=== PATIENT | female | born 1990 | race Caucasian/White ===

== ENCOUNTER 2016-09-25 05:37 | Inpatient (IN) | payer OTHER ==
[~2016-09-25] VITALS: Ht 149.9 cm; Wt 82.6 kg
[2016-09-25] MEDS ORDERED: Sodium Citrate-Citric Acid 15 mL Solution PO SCH (06:00)
[2016-09-25] MEDS ORDERED: Methylergonovine 0.2 mg/mL Inj IM PRN ×2 (06:00→09:30)
[2016-09-25] MEDS ORDERED: Oxytocin 10 Unit/mL Inj IM PRN ×2 (06:00→09:30)
[2016-09-25] MEDS ORDERED: Lactated Ringer's 1,000 ML IV SCH (06:00)
[2016-09-25] MEDS ORDERED: Carboprost 250 mCg/mL Inj IM PRN ×2 (06:00→09:30)
[2016-09-25] MEDS ORDERED: Hemorrhage Kit, Post Partum XX ONE ×2 (06:00→09:30)
[2016-09-25 06:35] LABS: Mean Corpuscular Hemoglobin 27.1 pg (27.0-35.0); Mean Corpuscular Volume 80.4 fL (81-100)
--- NOTE | 2016-09-25 07:09 | PCM.HPANE ---
Patient Data Surgeon Admitting Provider:Elizabeth Marmolejo MD Attending Provider:Elizabeth Marmolejo MD Primary Care Physician:Jose Alfredo Other Provider:Cira Almendarez Anesthesia Reason for Visit repeat repeat Ht/WT & BMI Body Mass Index Diabetes History Hx Diabetes?: No MRSA MRSA: No Medications Hypertension Medication: No Home Meds Incl Beta Rosario: No History Hx of Heart Problems?: No Other History/Comments h/o ASD repair as an , no cardiac limitations currently Hx of Respiratory Problem?: No Smoking Status: Never Smoker Stop/Bang Risk Assessment Category Category 1A: Patient has history of documented sleep apnea, and HAS NOT received any narcotic, sedative or anesthesia administration during this stay. Category 1B: Patient has history of documented sleep apnea, and HAS received any narcotic , sedative or anesthesia administration during this stay Category 2: Patient has SUSPECTED Obstructive Sleep Apnea, and HAS received any narcotic , sedative or anesthesia administration during this stay. Category 3: Patient has SUSPECTED Obstructive Sleep Apnea and HAS NOT received narcotic, sedative or anesthesia administration during this stay. Category 4: Outpatient in Procedural Areas with known sleep apnea or who screen positive for High Risk via the STOP/BANG questionnaire. Exam Exam General Appearance: Alert, Oriented X3, Cooperative, No Acute Distress HEENT/AIRWAY: MP 1, Other (nml airway exam) Lungs: Normal Air Movement Heart: Exam Unremarkable Meds/Labs/Diagnostics Admission Meds Current Medications Lactated Ringer's (Lr) 1,000 ml @ 125 mls/hr Q8H IV Last administered on t 06:23; Start 09/25/16 at 06:00; Stop 09/25/16 at 13:59; Status UNV Labs Test 09/25/16 05:50 09/25/16 06:10 Urine Opiates Screen Negative Urine Methadone Screen Negative Urine Barbiturates Screen Negative Urine Amphetamines Screen Positive Urine Benzodiazepines Screen Negative Urine Cocaine Metabolite Screen Negative Urine Cannabinoids Screen Positive White Blood Count 9.6th/mm3 (3.8-10.1) Red Blood Count 4.13mil/mm3 (3.90-5.20) Hemoglobin 11.2g/dL (12.0-15.6) Hematocrit 33.2% (35.0-46.0) Mean Corpuscular Volume 80.4fL (81-100) Mean Corpuscular Hemoglobin 27.1pg (27.0-35.0) Mean Corpuscular Hemoglobin Concent 33.7% (32.0-37.0) Red Cell Distribution Width 13.5% (12.3-15.4) Platelet Count 465bil/L (150-400) Plan Impression Patient chart reviewed, patient interviewed and anesthestic plan with risks, benefits, and alternatives discussed, and informed consent obtained. ASA Physical Status: ASA2 Mod Systemic Disease Anesthetic Plan: SAB Bene/Risks/Altern/Consents: Yes HP Complete Prior to Induction: Yes Jude Hernandez MD Sep 25, 2016 07:09
[2016-09-25] MEDS ORDERED: Dexamethasone 4 mg/mL Inj ONE ×2 (07:42→07:55)
[2016-09-25] MEDS ORDERED: Bupiv-Spinal 0.75%/Dex 8.25% 2 mL Inj ONE (07:42)
[2016-09-25] MEDS ORDERED: Ondansetron 2 mg/mL 2 mL Inj ONE ×2 (07:42→07:55)
[2016-09-25] MEDS ORDERED: Phenylephrine/NS-PF 100 mCg/mL 5 mL Syringe IVPUSH ONE ×2 (07:42→07:55)
[2016-09-25] MEDS ORDERED: fentaNYL-PF 50 mCg/mL 2 mL Inj ONE (07:55)
[2016-09-25] MEDS ORDERED: Morphine PF 1 mg/mL 10 mL Inj ONE (07:55)
[2016-09-25] MEDS ORDERED: Oxytocin 10 Unit/mL Inj ONE (07:55)
[2016-09-25] MEDS ORDERED: Lactated Ringer's 1,000 ML IV PRN (08:22)
[2016-09-25] MEDS ORDERED: EPHEDrine Sulfate 50 mg/mL Inj IVPUSH PRN (08:25)
[2016-09-25] MEDS ORDERED: Atropine 0.4 mg/mL Inj IV PRN (08:25)
[2016-09-25] MEDS ORDERED: Ondansetron 2 mg/mL 2 mL Inj IVPUSH PRN (08:25)
[2016-09-25] MEDS ORDERED: MetoCLOpramide 5 mg/mL 2 mL Inj IVPUSH PRN (08:25)
[2016-09-25] MEDS ORDERED: fentaNYL-PF 50 mCg/mL 2 mL Inj IVPUSH PRN (08:25)
[2016-09-25] MEDS ORDERED: Dexamethasone 4 mg/mL Inj IVPUSH PRN (08:25)
[2016-09-25] MEDS ORDERED: hydrOXYzine Pamoate 25 mg Capsule PO PRN (09:30)
[2016-09-25] MEDS ORDERED: LANOlin HPA 7 Gm Ointment TOPICAL PRN (09:30)
[2016-09-25] MEDS ORDERED: Oxytocin 30 Units/500 mL LR 30 UNITS in IV Premix 1 EACH IV PRN (09:30)
[2016-09-25] MEDS ORDERED: Measles-Mumps-Rubella Vaccine 0.5 mL Inj SUBQ ONE (09:30)
[2016-09-25] MEDS ORDERED: Sodium Chloride LOK Flush 10 mL Syringe IVFLUSH PRN (09:30)
[2016-09-25] MEDS ORDERED: diphenhydrAMINE 50 mg Capsule PO PRN (09:30)
--- NOTE | 2016-09-25 09:41 | PCM.ANEP1 ---
Post Anesthesia Phase 1 PACU Phase 1 Assessment Vital Signs see anesthesia record Anesthetic Administered: SAB Level of Alertness: Awake, talking BELL's with Equal Strength: No (SAB still in effect) Pain: No Nausea or Vomiting: No Oxygen Delivery: Room Air Lungs: Normal Air Movement Dermatome Level: T10 (Umbilicus) Jude Hernandez MD Sep 25, 2016 09:41
--- NOTE | 2016-09-25 09:41 | PCM.ANEP2 ---
Post Anesthesia Evaluation ASA/CMS Post Anesthesia VS in Patient's Normal Range?: Yes Resp Stable; Airway Patent?: Yes CV Function & Hydration Stable: Yes Mental Status Recovered?: Yes Pain control Satisfactory?: Yes N/V Control Satisfactory?: Yes Jude Hernandez MD Sep 25, 2016 09:41
--- NOTE | 2016-09-25 10:17 | OP ---
[address] [address] OPERATIVE REPORT PATIENT: CHRISTIANO LUIS : 1990 MR#: [id number] ADMIT: 09/25/2016 JOB ID: [id number] DATE OF SURGERY: 09/25/2016 PREOPERATIVE DIAGNOSIS(ES): 1. A 39 plus 2 week intrauterine , here for repeat section. 2. History of section x2 previously. 3. History of asthma, on albuterol and Pulmicort. 4. Maternal history of atrial-septal defect repair in childhood with normal echo this . 5. Positive marijuana and amphetamine screen at the time of admission. 6. Rh-negative status, status post RhoGAM given at 38 weeks in . 7. Poor social situation. Would transfer care from [facility] to [facility], as the is not allowed at [facility] facilities due to trespassing charges. 8. Depression, controlled on Celexa. 9. Rubella equivocal status. POSTOPERATIVE DIAGNOSIS(ES): 1. A 39 plus 2 week intrauterine , here for repeat section. 2. History of section x2 previously. 3. History of asthma, on albuterol and Pulmicort. 4. Maternal history of atrial-septal defect repair in childhood with normal echo this . 5. Positive marijuana and amphetamine screen at the time of admission. 6. Rh-negative status, status post RhoGAM given at 38 weeks in . 7. Poor social situation. Would transfer care from [facility] to [facility], as the is not allowed at [facility] facilities due to trespassing charges. 8. Depression, controlled on Celexa. 9. Rubella equivocal status. PROCEDURE: Repeat low-transverse section. SURGEON: Elizabeth Marmolejo MD. PRINTING ASSISTANT: Se Olvera MD, who was necessary for retraction and assistance with lysis of adhesions and dissection, given the patient's history of section x2. ANESTHESIA: Spinal with Duramorph. ESTIMATED BLOOD LOSS: 500 cc. FLUID REPLACEMENT: 1800 cc of crystalloid. URINE OUTPUT: 300 cc of clear yellow urine. FINDINGS: Liveborn male , born on September 25, 2017 at 0826 hours, weighing 6 pounds 8 ounces or 2946 g, with Apgars of 9 at one minute and 10 at five minutes. COMPLICATIONS: None apparent. INDICATIONS: This is a 25-year-old, G3, P 2-0-0-2 female, who presented at 39 plus 2 weeks gestation with EDC of September 30, 2016, for planned repeat low transverse section. Her was complicated by history of x2, asthma controlled on albuterol and Pulmicort, history of maternal cardiac defect with ASD repair in childhood with normal echo completed in this , known marijuana use and urine drug screen at the time of admission positive for both marijuana, as well as amphetamines, Rh negative status with RhoGAM given at 38 weeks, transfer of care from [facility] at around 30 weeks of gestation, as the patient's boyfriend was not allowed at [facility] due to trespassing charges, and depression, on Celexa, which was restarted at 28 weeks, as well as rubella nonimmune status. She presented on the morning of the to undergo the planned repeat section. Risks, benefits and alternatives were discussed with her beforehand. She elected to proceed. DESCRIPTION OF PROCEDURE: The patient was taken to the operating room. She was placed in dorsal supine position with a leftward tilt. She was prepped and draped in the usual sterile fashion for a . Under excellent spinal anesthesia, the abdomen was entered sharply through her old Pfannenstiel incision. This was carried down to the level of the rectus fascia sharply. Fascia was then incised in the midline using Thomas scissors, as well as blunt and sharp dissection. The rectus fascia was from the underlying rectus muscle. Given her history of section x2, there was a moderate amount of scarring along the rectus muscles and the fascial plate. Using blunt dissection and sharp dissection, as well as electrocautery, the fascia was then further dissected from the rectus muscle cephalad, followed by further dissection down towards the bladder. The peritoneum was entered with the aid of a hemostat, and a combination of both blunt and sharp dissection was used to allow entrance into the peritoneal cavity. The bladder blade was then placed, and a bladder flap was created by elevating the vesicouterine peritoneum and sharply this from the uterine muscle after displacing the peritoneum down where the bladder blade was then replaced. An incision with a scalpel was then made over the lower uterine segment revealing a moderate amount of clear amniotic fluid. This incision was then extended bilaterally with bandage scissors. Next, the 's vertex was brought to the uterine incision and using fundal pressure, the infant was then delivered atraumatically, with the anterior shoulder delivered easily, followed by the posterior shoulder, with the remainder of the infant easily delivered following this. After a 60-second cord clamping delay, the cord was then clamped and cut. The was passed to the Nursing team who were in attendance. Cord blood was then obtained. The placenta delivered intact spontaneously and was passed off the table. The uterus was removed from the abdominal cavity, covered with a moist lap and cleaned with a lap sponge. Then, 30 units of Pitocin was placed in the IV bag to firm the uterus after the cord was clamped and cut. Good uterine tone was noted. The uterus was closed with a single locking layer of 0 Vicryl. A second imbricating stitch was placed on top of this, and electrocautery was used for hemostasis. The posterior cul-de-sac was irrigated. The uterus was then replaced into the abdominal cavity. The pericolic gutters were cleared of clot and debris, and the vesicouterine peritoneum was then made hemostatic with the use of electrocautery. The rectus muscle was inspected and made hemostatic with electrocautery. The rectus fascia was closed with two running, nonlocking layers of 0 Vicryl starting in each corner and meeting in the middle. The subcutaneous tissues made hemostatic with electrocautery and reapproximated with 0 plain gut suture. The skin was then closed with 4-0 Vicryl. There was noted to be a hematoma that was occurring in the left corner of the skin incision and so, the subcutaneous suture was released and the tissue was grasped with an Allis clamp and a deeper stitch of 0 plain suture was placed in the corner. There was no expansion of the hematoma noted following this, and the subcutaneous stitch was then continued onward. A pressure dressing was placed on top of this. The patient tolerated this procedure well, recovered in labor and delivery with her infant. All sponge, needle and instrument counts were correct.
[2016-09-25] MEDS: Lactated Ringer's 1,000 ML IV SCH (10:46)
[2016-09-25] MEDS: Acetaminophen IV 1,000 MG in IV Premix 1 EACH IV PRN ×2 (11:07→20:31)
[2016-09-25] MEDS: oxyCODONE-Acetamin 5-325 mg Tablet PO PRN ×2 (17:12→20:39)
[2016-09-26] MEDS: oxyCODONE-Acetamin 5-325 mg Tablet PO PRN ×3 (00:57→19:15)
[2016-09-26 06:59] LABS: Mean Corpuscular Volume 82.5 fL (81-100)
--- NOTE | 2016-09-26 08:02 | PCM.PNOBPP ---
Subjective Date of Service Sep 26, 2016 Subjective Was complaining of left flank pain radiates to the suprapubic area. Pain improved at this time. Lochia: Normal Pain Management: PO pain meds, Good Pain Control Gastrointestinal: Good Appetite, No N/V Postop Activity: Ambulating Independently, Ambulating in Rubin Labs Laboratory Tests 09/26/16 06:40: White Blood Count 13.9, Red Blood Count 3.48, Hemoglobin 9.4, Hematocrit 28.7, Mean Corpuscular Volume 82.5, Mean Corpuscular Hemoglobin 27.0, Mean Corpuscular Hemoglobin Concent 32.8, Red Cell Distribution Width 13.5, Platelet Count 381 Exam Vital Signs Vital Signs 115/61, 71, 16, 98%, 36.5 Vital Signs: VS reviewed, stable Exam Abdomen: Uterus is, Fundus firm Extremities: Normal pulses, No edema Lungs: Clear to Auscultation Heart: Regular Rate/Rhythm, Normal S1, Normal S2 General: Alert, Oriented X3 Surgical Wound : Incision General Appearence: Steri Strips, Sutures, Intact, Well Approximated, Incision Healing, No Erythemia, No Discharge, No Inflammatory Changes (small 3-4 mm size bruise at the left superior margin) OB Post Assessment/Plan Assessment 25 Y/O POD#1 1. S/P Repeat section x3 previously. 2. Anemia Hgb 9.6. will start Iron. Normal post OP recovery. Palumbo catheter was removed this am, will monitor for urine out put. Bottle feeding Problem list during regnancy: -History of asthma, on albuterol and Pulmicort. -Maternal history of atrial-septal defect repair in childhood with normal echo this . -Positive marijuana and amphetamine screen at the time of admission. -Rh-negative status, status post RhoGAM given at 38 weeks in . is RH negative. - Poor social situation. Would transfer care from to [facility], as the is not allowed at facilities due to trespassing charges. -Depression, controlled on Celexa. - Rubella equivocal status. MMR vaccine was given post . Maxim Robles MD Sep 26, 2016 08:02
[2016-09-26] MEDS: Ascorbic Acid 500 mg Tablet PO SCH (09:26)
--- NOTE | 2016-09-26 12:49 | NUR ---
[facility] center: Social work assessment 09/26/16 DANIEL and THOMAS name: Li Fuller and Marshall Sanabria Baby's name: No name yet, Baby jennifer Fuller Reason for 3D ANIMATOR consult: DANIEL had sporadic care and positive drug screen for THC and amphetamine. Current living situation: DANIEL and THOMAS live with maternal grandfather, DANIEL's two previous children, Maternal brother and maternal cousin in [facility]. Previous children/CPS involvement: DANIEL reports two previous children, named Marta Davidson and Clyde Fuller, aged 7 and 10 respectively. DANIEL acknowledges CPS involvement in the past but reports full custody of both children. 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 DANIEL reports marijuana use during preganancy due to pain and states that she "slipped up" and used adderall towards the end of her as she had many things to get done and take care of. DANIEL denies any other drug or alcohol use. MOB aware that UDS for baby and cord stat were sent for review and that CPS report will be made as per hospital policy. Mental health history and current issues: DANIEL reports previous history of depression without suicidal ideations, homicidal ideations or inpatient psychiatric treatment. THOMAS is diagnosed with Schizophrenia and is currently enrolled with [facility] where he receives counseling and medication management. THOMAS has a history of homelessness but since meeting DANIEL has been living with her. THOMAS has disorganized and somewhat tangential thinking, however does not appears likely to be at baseline. MOB plans to contact THOMAS's mother or his test case developer if he begins to decompensate. Source of income/state assistance: DANIEL is enrolled with [facility] and submitted an application for TANF, although presently only receives food stamps and 80 dollars of child support. THOMAS receives ~850 per month from SSI and [employer]. DANIEL only pays for utilities at her current home as her family owns it. DV/abuse history: DANIEL denies any previous or current domestic violence or abuse. Supports: DANIEL reports that both maternal grandparents and paternal grandmother are local and supportive of family. Assessment/disposition: 3D ANIMATOR consult requested secondary to limited care and positive UDS on arrival. 3D ANIMATOR met with DANIEL and THOMAS at bedside. MOB acknowledges adderall use in late term as well as THC use and a history of heroin use which she received inpatient treatment for. 3D ANIMATOR explained need for CPS involvement for this and MOB is understanding yet emotional. Records from care prior to transfer from [facility] were not received, questioning whether or not MOB had any care prior to arrival. FOB also struggles with mental illness which is certainly a risk factor. CPS referral has been made to Jacqueline Dennis in intake who reports that it will screen in and she expects a worker to meet with MOB and FOB today, 09/26. Assistant Product Manager and RN aware. 3D ANIMATOR to continue to follow and assist as needed. HARINI Merchant Addendum: 09/26/16 at 1249 by TD MARTINEZ Amended: Links added.
[2016-09-26 13:50] LABS: COLOR,URINE STRAW (YELLOW)
[2016-09-26 13:51] LABS: APPEARANCE,URINE CLEAR (CLEAR,HAZY); OCCULT BLOOD,URINE LARGE (NEGATIVE); UROBILINOGEN,URINE NORMAL (NORMAL)
[2016-09-27] MEDS: oxyCODONE-Acetamin 5-325 mg Tablet PO PRN ×2 (02:14→10:14)
--- NOTE | 2016-09-27 09:10 | PCM.PNOBPP ---
Subjective Date of Service Sep 27, 2016 Visit History 25 y/o now P3 on post-operative day #2 from repeat section who is recovering appropriately. She has had 2 previous sections. complicated by asthma, poor social situation and positive UDS on admission for marijuana and amphetamine (pt reports taking Adderall late in ). Repeat UDS 09/26/16 positive for cannabis only. . Subjective Patient is doing well this morning. She reports abdominal pain, worse with ambulation but pain is tolerable. She is ambulating and voiding without difficulty. Lochia is normal. Bottle feeding is going well. . Lochia: Normal Pain Management: PO pain meds, Good Pain Control Gastrointestinal: Good Appetite, No N/V Postop Activity: Ambulating Independently, Ambulating in [facility] Labs Blood type: O negative Varicella unknown Rubella equivocal RPR nonreactive HIV screen unknown Chlamydia and gonorrhea negative Appetite is surface antigen and hepatitis C virus negative GBS negative Gestational diabetes screen negative. Group B Strep Results: Negative Rubella: Equivocal Blood Type: O RH Type: Negative Labs Laboratory Tests 09/26/16 06:40: White Blood Count 13.9, Red Blood Count 3.48, Hemoglobin 9.4, Hematocrit 28.7, Mean Corpuscular Volume 82.5, Mean Corpuscular Hemoglobin 27.0, Mean Corpuscular Hemoglobin Concent 32.8, Red Cell Distribution Width 13.5, Platelet Count 381 Exam Vital Signs Vital Signs temp 36.7, BP 115/56, HR 74, RR 16 Vital Signs: VS reviewed, stable Exam Abdomen: Abdomen appropriately tender : Voiding without difficulty Extremities: No tenderness/swelling Lungs: Clear to Auscultation Heart: Regular Rate/Rhythm General: Alert, Oriented X3 Surgical Wound : Incision General Appearence: Steri Strips, Well Approximated, No Inflammatory Changes Dressing & Drainage Status: Dry & Intact OB Post Assessment/Plan Assessment 25 Y/O now P3 on post-operative day #2 from repeat section who is recovering appropriately. Problems: (1) Term delivered Status: Acute ICD Code: O80 (2) S/P repeat low transverse Plan: -Continue oral pain medications as needed -Encourage ambulation -Pt to f/u at [facility] in 2wks Status: Acute ICD Code: Z98.89 (3) Positive urine drug screen Plan: -UDS on admission positive for cannabis and amphetamines -Pt admits to smoking marijuana during . -Pt reports taking Adderall (does not have a prescription) late in and denies illicit drug use. -SW consulted and following -Due to hx of depression, monitor closely for depression. -Recommend close f/u with PCP as well Status: Acute ICD Code: R82.5 Pain Evaluation: Adequate Pain Control VTE Mechanical Devices: Intermittant Pneumatic CD Post plan: Continue routine post care Attending Statement The patient was seen and examined together with Nurys Castrejon DO on and I agree with the history, exam and plan as outlined in the note above. Nurys Talbot DO Sep 27, 2016 08:57 Kojo Villavicencio MD Sep 27, 2016 10:12
[2016-09-27] MEDS: Lactated Ringer's 1,000 ML IV SCH (09:29)
[2016-09-27] MEDS: Ascorbic Acid 500 mg Tablet PO SCH (10:15)
--- NOTE | 2016-09-27 10:19 | PCM.DC.OB ---
Obstetrical Discharge Summary Date of Service Sep 27, 2016 Date of hospital admission Sep 25, 2016 at 05:37 Date of Discharge: Sep 27, 2016 Providers Admitting Physician: Elizabeth Marmolejo MD Primary Care Physician: Jose Alfredo Attending Physician: Elizabeth Marmolejo MD Problems: (1) S/P repeat low transverse Status: Acute ICD Code: Z98.89 (2) Term delivered Status: Acute ICD Code: O80 (3) Positive urine drug screen Status: Acute ICD Code: R82.5 Invasive procedures PROCEDURE: Repeat low-transverse section Date of Procedure: Sep 25, 2016 Brief History and Physical: 25 Y/O now P3 on post-operative day #2 from repeat section who is recovering appropriately. Exam Vital Signs: temp 36.7, BP 115/56, HR 74, RR 16 General: Alert, oriented x3 Abdomen: Abdomen appropriately tender : Voiding without difficulty Extremities: No tenderness/swelling Lungs: Clear to Auscultation Heart: Regular Rate/Rhythm Surgical Wound : Incision General Appearence: Steri Strips, Well Approximated, No Inflammatory Changes Dressing & Drainage Status: Dry & Intact . Hospital Course: 25 y/o [id number] female, who presented at 39 plus 2 weeks gestation, for planned repeat low transverse section. Her was complicated by history of x2, asthma controlled on albuterol and Pulmicort, history of maternal cardiac defect with ASD repair in childhood with normal echo completed in this , known marijuana use and urine drug screen at the time of admission positive for both marijuana as well as amphetamines (patient reported taking Adderall), Rh negative status with RhoGAM given at 38 weeks, transfer of care from [facility] at around 30 weeks of gestation, as the patient's boyfriend was not allowed at [facility] due to trespassing charges, and depression, on Celexa, which was restarted at 28 weeks , as well as rubella nonimmune status. She presented on 09/25/16 and underwent a planned repeat section. She was discharged on post-operative day #2 in stable condition. Social was consulted due to UDS positive for amphetamines. Labs: Blood type: O negative Varicella unknown Rubella equivocal RPR nonreactive HIV screen unknown Chlamydia and gonorrhea negative Appetite is surface antigen and hepatitis C virus negative GBS negative Gestational diabetes screen negative. . ([Ascorbic Acid]) 500 MG TABLET 500 MG PO DAILY Prescribed by: CARLITA GOODWIN DO Docusate Sodium (Colace) 100 Mg Capsule 100 MG PO BID Prescribed by: CARLITA GOODWIN DO Ferrous Sulfate (Feosol) 325 Mg Tablet 325 MG PO DAILY Prescribed by: CARLITA GOODWIN DO Ibuprofen (Ibuprofen) 800 Mg Tablet 800 MG PO Q8H PRN PRN For Pain Prescribed by: CARLITA GOODWIN DO oxyCODONE-Acetaminophen 5-325 mg (oxyCODONE-Acetaminophen 5-325 mg) 1 Each Tablet 1-2 TAB PO Q6H PRN PRN For Pain Prescribed by: CARLITA GOODWIN DO Discharge Medications: Percocet 5/325 mg, take 1 tab q4-6h PO PRN for pain Colace 100 mg BID PO PRN for constipation Ferrous sulfate 325 mg PO daily Vitamin C 500 mg PO daily. Take with iron Ibuprofen 800mg, take 1 tab q8h PO PRN for pain . Follow-up plan Follow up at [facility] in 2 weeks and again in 6 weeks Recommend establishing care with a PCP or Mental Health Counselor for depression and positive UDS. Discharge Diet: No restrictions Discharge Activity-General: Pelvic Rest for 6 weeks, Balance rest and activity , Ice incision 3-5 time/day for 20min, No lifting >15 pounds for 2 weeks Patient instructions Continue your vitamin. Please take the iron and vitamin c together for your anemia. Do not take more pain medication (Percocet) than is necessary -- less is better. Percocet pills have Tylenol (acetaminophen) in them at 325mg per pill. Do not take Tylenol in addition to your pain medication but should take one or the other. Both iron and Percocet can give you constipation so you have also been given a prescription for docusate to keep you regular. Be sure to follow up in 2 weeks and then again in 6 weeks at [facility]. Pelvic rest for 6 weeks (nothing per vagina including intercourse, tampons) If you have a fever greater than 100.4, please call [facility]. There is always someone personnel training officer to talk to. If you have an increase in bleeding, call [facility]. If you have a lot of bleeding suddenly, especially if you have symptoms of dizziness & weakness with it, get emergency help. When you see [facility] in two weeks, you will be informed of the results of all the labs. If you start experiencing extreme depression, especially if you feel that you are a danger to yourself or your family, seek emergency help. You have been through a lot -- BE SURE TO TAKE CARE OF YOURSELF. Attending Statement: The patient was seen and examined together with Carlita Castrejon DO on and I agree with the history, exam and plan as outlined in the note above. Carlita Goodwin DO Sep 27, 2016 10:19 Kojo Villavicencio MD Sep 30, 2016 10:44
--- NOTE | 2016-09-27 10:20 | PCM.DIOB ---
Obstetrical Disch Instruction Dates of Hospitalization Date of Hospital Admission Sep 25, 2016 at 05:37 Providers Admitting Physician: Elizabeth Marmolejo MD Primary Care Physician: Jose Alfredo Attending Physician: Elizabeth Marmolejo MD Discharge Diagnosis Problems: (1) S/P repeat low transverse Status: Acute ICD Code: Z98.89 (2) Term delivered Status: Acute ICD Code: O80 (3) Positive urine drug screen Status: Acute ICD Code: R82.5 Diet Discharge Diet: No restrictions Activity Discharge Activity-General: Pelvic Rest for 6 weeks, Ice incision 3-5 time/day for 20min, No lifting >15 pounds for 2 weeks Dressing and Incisional Care Dressing Care: Allow Steri Stripes to fall off Hygiene: May shower Additional Instructions Discharge Instructions Continue your vitamin. Please take the iron and vitamin c together for your anemia. Do not take more pain medication (Percocet) than is necessary -- less is better. Percocet pills have Tylenol (acetaminophen) in them at 325mg per pill. Do not take Tylenol in addition to your pain medication but should take one or the other. Both iron and Percocet can give you constipation so you have also been given a prescription for docusate to keep you regular. Be sure to follow up in 2 weeks and then again in 6 weeks at [facility]. Pelvic rest for 6 weeks (nothing per vagina including intercourse, tampons) If you have a fever greater than 100.4, please call [facility]. There is always someone community liaison to talk to. If you have an increase in bleeding, call [facility]. If you have a lot of bleeding suddenly, especially if you have symptoms of dizziness & weakness with it, get emergency help. When you see [facility] in two weeks, you will be informed of the results of all the labs. If you start experiencing extreme depression, especially if you feel that you are a danger to yourself or your family, seek emergency help. You have been through a lot -- BE SURE TO TAKE CARE OF YOURSELF. Follow Up Plan Follow Up Plan Follow up at [facility] in 2 weeks and again at 6 weeks. Recommend establishing care with a Primary Care Physician. Follow-up Provider (F9): [facility] Call your provider for: Fever or Chills, Shortness of breath, Heavy vaginal bleeding, Epigastric pain, Excessive constipation Nurys Talbot DO Sep 27, 2016 10:20
[2016-09-27] MEDS ORDERED: FERR-74 PO (10:23)
[2016-09-27] MEDS ORDERED: OXYC1TAB24 PO (10:23)
[2016-09-27] MEDS ORDERED: Ascorbic Acid PO (10:23)
[2016-09-27] MEDS ORDERED: DOCU-41 PO (10:23)
[2016-09-27] MEDS ORDERED: IBUP800T28 PO (10:23)
[2016-09-27 13:14] VITALS: BP 138/67; PULSE 100; RESP 17
== END 2016-09-27 13:47 | disposition home or self-care (01) | DRG 540 ==
LOC: FBC 05:37 → EDSTATUS 07:15
PROVIDERS: ADMIT Obstetrics & Gynecology; ATTEND Obstetrics & Gynecology
PROC: 10D00Z1 Extraction of Products of Conception, Low, Open Approach (ICD-10-PCS; principal; 2016-09-25 07:15)
DX: O34.211 Maternal care for low transverse scar from previous cesarean delivery (principal); O99.324 Drug use complicating childbirth; F32.9 Major depressive disorder, single episode, unspecified; Z3A.39 39 weeks gestation of pregnancy; Z37.0 Single live birth; O99.344 Other mental disorders complicating childbirth; J45.909 Unspecified asthma, uncomplicated; F12.90 Cannabis use, unspecified, uncomplicated; O99.02 Anemia complicating childbirth